=== PATIENT | male | born 1960 | race Caucasian/White ===

== ENCOUNTER 2019-12-15 21:12 | Emergency (ER) | payer OTHER ==
[~2019-12-15] VITALS: Ht 185.4 cm; Wt 104.3 kg
[~2019-12-15 21:12] MED LIST: CRESTOR10 MG PO; FENOFIBRATE160 MG; FLEXERIL PO; HYDROCODONE-AP1 EAC6 PO; IBUPROFEN 800800 M1 PO; PROTONIX40 M1 PO
[2019-12-15] MEDS ORDERED: TOPROL XL50 MG PO (21:26)
[2019-12-16] MEDS ORDERED: HYDROCODON-ACE1 EAC7 PO (00:11)
[2019-12-16] MEDS ORDERED: MEDROLDOSEPACK PO (00:11)
[2019-12-16] MEDS ORDERED: DIAZEPAM 5 MG5 MG PO (00:11)
[2019-12-16 00:38] VITALS: BP 151/84
== END 2019-12-16 00:39 | disposition home or self-care (01) ==
LOC: M.ERS 21:12
DX: M43.6 Torticollis (principal); M62.838 Other muscle spasm; Z96.652 Presence of left artificial knee joint